=== PATIENT | male | born 1980 | race African-American/Black ===

== ENCOUNTER 2017-04-22 14:10 | Emergency (ER) | payer MEDICAID ==
[~2017-04-22] VITALS: Ht 177.8 cm; Wt 108.0 kg
[2017-04-22] MEDS ORDERED: METHOCARBAMOL 500MG TABLET PO ONE (18:30)
[2017-04-22] MEDS ORDERED: KETOROLAC 60MG/2ML VIAL IM ONE (18:30)
[2017-04-22 18:57] VITALS: BP 125/79
== END 2017-04-22 19:20 | disposition home or self-care (01) ==
LOC: ER 15:22
DX: M54.30 Sciatica, unspecified side (principal); F12.10 Cannabis abuse, uncomplicated; Z98.890 Other specified postprocedural states
CPT/HCPCS: 96372; 99283; J1885

== ENCOUNTER 2022-02-05 09:57 | Emergency (ER) | payer MEDICAID ==
[~2022-02-05] VITALS: Ht 177.8 cm; Wt 98.0 kg
[2022-02-05] MEDS ORDERED: ACETAMINOPHEN WITH CODEINE 300/30MG TABLET PO STA (11:02)
[2022-02-05] MEDS ORDERED: KETOROLAC 60MG/2ML VIAL IM STA (11:02)
[2022-02-05 11:25] VITALS: BP 168/107
[2022-02-05] MEDS ORDERED: TRAM50TA3 MT (12:25)
[2022-02-05] MEDS ORDERED: NAPR-681 PO (12:25)
== END 2022-02-05 13:54 | disposition home or self-care (01) ==
LOC: ER 09:57
DX: M54.32 Sciatica, left side (principal); F12.10 Cannabis abuse, uncomplicated
CPT/HCPCS: 96372; 99283; J1885

== ENCOUNTER 2022-02-07 01:23 | Emergency (ER) | payer MEDICAID ==
[~2022-02-07] VITALS: Ht 180.3 cm; Wt 111.0 kg
[~2022-02-07 01:23] MED LIST: NAPR-681 PO; TRAM50TA3 MT
[2022-02-07] MEDS ORDERED: OXYCODONE HCL/ACETAMINOPHEN 5/325MG TABLET PO ONE (05:30)
[2022-02-07] MEDS ORDERED: IBUPROFEN 800MG TABLET PO ONE (05:30)
[2022-02-07] MEDS ORDERED: DEXAMETHASONE 10 MG/ML VIAL IM ONE (05:30)
[2022-02-07] MEDS ORDERED: IBUP-2030 PO (06:38)
[2022-02-07] MEDS ORDERED: OXYC-100 PO (06:38)
[2022-02-07 07:30] VITALS: BP 108/78
== END 2022-02-07 07:33 | disposition home or self-care (01) ==
LOC: ER 01:23
DX: M54.9 Dorsalgia, unspecified (principal); M54.30 Sciatica, unspecified side
CPT/HCPCS: 72100; 96372; 99283; J1100; Z7610

== ENCOUNTER 2022-12-05 02:30 | Emergency (ER) | payer MEDICAID, OTHER ==
[~2022-12-05] VITALS: Ht 177.8 cm; Wt 109.1 kg
[~2022-12-05 02:30] MED LIST changes: +IBUP-2030 PO; +OXYC-100 PO
[2022-12-05 02:59] VITALS: BP 142/83; PULSE 72; RESP 16; TEMP 98.6; O2SAT 99
[2022-12-05] MEDS ORDERED: AMOX1TAB16 PO (05:31)
[2022-12-05] MEDS ORDERED: IBUP-2030 PO (05:31)
== END 2022-12-05 05:54 | disposition home or self-care (01) ==
LOC: ER 02:30
DX: K04.7 Periapical abscess without sinus (principal)
CPT/HCPCS: 99281; 99283